=== PATIENT | female | born 1960 | race Caucasian/White ===

== ENCOUNTER 2023-09-10 21:30 | Inpatient (IN) | payer OTHER, SELFPAY ==
[2023-09-10] VITALS (8 sets, daily range): BP systolic 110–123; BP diastolic 63–77; PULSE 59–78; RESP 20; TEMP 36; O2SAT 90–94; BMI 37.1
--- NOTE | 2023-09-10 21:57 | ED.ABDPAIN ---
HPI - Abdominal Pain General Time Seen by Provider: 21:57 Date Seen: 09/10/23 Chief Complaint: Abdominal Pain Stated Complaint: abdominal pain Time Seen by Provider: 09/10/23 21:56 Source: patient and RN notes reviewed Mode of arrival: ambulatory Limitations: no limitations History of Present Illness HPI narrative: This 63-year-old female is coming in with epigastric/right upper quadrant abdominal pain starting around 8:00 p.m. tonight. She had a brief episode lasting about 20 minutes earlier this morning. She feels nauseated but has not thrown up. Since the pain has started, feels sweaty and hot. She denies any bowel changes or urinary changes, no known fevers. She states she knows she has gallstones, had an ultrasound maybe a couple months ago but was not symptomatic at that time other than maybe having some pain in her back per report. She did have steak, baked potato and green beans for dinner tonight. She is having significant pain. MD elicited complaint: abdominal pain Related Data Patient : No Home Medications Medication Instructions Recorded Confirmed No Known Home Medications 09/10/23 09/10/23 Allergies Allergy/AdvReac Type Severity Reaction Status Date / Time No Known Allergies Allergy Verified 09/10/23 23:29 Review of Systems Status of ROS Reports: 6 or more systems reviewed and unremarkable except as noted in History and below [facility] Surgical History History of hysterectomy ?Z90.710 - Acquired absence of both cervix and uterus (ICD-10) Social History Smoking Status: Never smoker Do you use any of these nicotine containing products: None Second hand tobacco smoke exposure: No How often do you have a drink containing alcohol: never AUDIT-C Alcohol total score: 0 Non-prescribed substance use: denies use Exam Const: Vital Signs, click to edit/add: Vital Signs - 24 hr 09/10/23 21:50 09/10/23 22:20 09/10/23 22:30 Temperature 96.8 F L Pulse Rate 71 59 L Pulse Rate [Pulse Oximeter] 70 Respiratory Rate 20 Blood Pressure Blood Pressure [Ri ght Upper Arm] 111/77 Pulse Oximetry 93 91 90 Oxygen Delivery Me thod Room Air Room Air 09/10/23 22:32 09/10/23 23:00 09/10/23 23:02 Temperature Pulse Rate 59 L 71 68 Pulse Rate [Pulse Oximeter] Respiratory Rate Blood Pressure 110/74 119/63 Blood Pressure [Ri ght Upper Arm] Pulse Oximetry 91 92 93 Oxygen Delivery Me thod 09/10/23 23:38 09/10/23 23:40 09/11/23 00:00 Temperature Pulse Rate 78 77 70 Pulse Rate [Pulse Oximeter] Respiratory Rate Blood Pressure 123/68 Blood Pressure [Ri ght Upper Arm] Pulse Oximetry 94 94 91 Oxygen Delivery Me thod This 63-year-old female is alert but pale, sweaty, looks like she does not feel well. Sclera clear, face is atraumatic. Able speak in complete sentences. Lungs clear, good air entry. CV regular rate and rhythm, no murmur. Abdomen is soft but obese, she has epigastric and right upper quadrant tenderness, she is quite tender in do feel that there is component of rebound and guarding on her exam. Do hear bowel sounds. She was ambulatory into the ED of her own accord. Documenting provider has reviewed patient's vital signs: yes Course Course ED Course: Will place an IV, have her on oximetry, start IV fluids, morphine for pain and Zofran for nausea control. Will get full complement of labs. This does include lipase to see if we may have pancreatitis. Will see if we can find ultrasound report in outpatient records. It was not done in our facility. May need to do CT imaging tonight, would like to see the ultrasound report which was done reportedly outpatient. Patient could be going towards cholecystitis, need to rule out pancreatitis, common bile duct stone. Reevaluation(s) Time of Reevaluation #1: 22:42 Reevaluation #1: Potassium resulted low at 2.9. Have ordered IV potassium. Do not think that this patient is going to tolerate orals right now, need to see her lipase results as well. Time of Reevaluation #2: 23:08 Reevaluation #2: Have reviewed with patient that she will be getting a CT of her abdomen due to elevated lipase/pancreatitis. She is feeling much better, will let us know if pain returns. Time of Reevaluation #3: 00:10 Reevaluation #3: Reviewed with patient the pancreatitis, plan as discussed with the surgeon. She did tell me that they were supposed to be leaving Thursday for a 12 day cruise. Given her current status, reviewed with her that she would never make a 12 day cruise without dealing with her current medical problems 1st. Consultations Consultation #1: Have reviewed with our general surgeon Dr. Wu. She agrees with admission to the hospital service, keep patient NPO and repeat labs in morning. Will page the telehealth hospitalist. Time: 00:04 Consultation #2: Have spoken with Dr. Alfaro, reviewed patient's case. He accepts the patient inpatient status for pancreatitis. Time: 00:15 Vital Signs Vital signs: Initial Vital Signs Temperature 96.8 F L 09/10/23 21:50 Temperature Source Temporal Artery Scan 09/10/23 21:50 Pulse Rate 70 09/10/23 21:50 Respiratory Rate 20 09/10/23 21:50 Blood Pressure 111/77 09/10/23 21:50 Blood Pressure Mean 88 09/10/23 21:50 Blood Pressure Position Sitting 09/10/23 21:50 Pulse Oximetry 93 09/10/23 21:50 Oxygen Delivery Method Room Air 09/10/23 21:50 Vital Signs Temperature 96.8 F L 09/10/23 21:50 Pulse Rate 70 09/10/23 21:50 Respiratory Rate 20 09/10/23 21:50 Blood Pressure 111/77 09/10/23 21:50 Pulse Oximetry 93 09/10/23 21:50 Oxygen Delivery Method Room Air 09/10/23 21:50 Temperature 96.8 F L 09/10/23 21:50 Pulse Rate 70 09/11/23 00:00 Respiratory Rate 20 09/10/23 21:50 Blood Pressure 123/68 09/10/23 23:40 Pulse Oximetry 91 09/11/23 00:00 Oxygen Delivery Method Room Air 09/10/23 22:20 Medications Administered Medications: Generic Name Dose Route Start Last Admin Trade Name Freq PRN Reason Stop Dose Admin Potassium Chloride 10 meq in 100 mls @ 100 mls/hr 09/10/23 22:45 09/10/23 23:29 Potassium Chloride IVPB 09/11/23 01:14 100 mls/hr Q90M KAYE Administration Discontinued Medications Generic Name Dose Route Start Last Admin Trade Name Freq PRN Reason Stop Dose Admin Sodium Chloride 1,000 mls @ 500 mls/hr 09/10/23 22:01 09/10/23 22:18 0.9 % Sodium Chloride 1000 Ml IV 09/11/23 00:00 500 mls/hr .Q2H KAYE Administration Morphine Sulfate 4 mg 09/10/23 22:00 09/10/23 22:18 Morphine 4 Mg/Ml Inj IVP 09/10/23 22:01 4 mg ONCE ONE Administration Ondansetron HCl 4 mg 09/10/23 22:00 09/10/23 22:18 Ondansetron 2 Mg/Ml Inj IVP 09/10/23 22:01 4 mg ONCE ONE Administration MDM - Abdominal Pain Medical Records Attestation: I reviewed the patient's medical records. Medical records narrative: Patient had an ultrasound done on 05/13/2023 at [facility], indication was elevated liver function tests. The findings were liver is of normal size in has diffusely increased echogenicity. There is a normal appearance of the hepatic IVC and proximal abdominal aorta. There is no evidence of ascites. The gallbladder is of normal size in there are multiple mobile echogenic gallstones present. The gallbladder wall measures 2.5 mm in thickness. The common bile duct is of normal size and measures 3.9 mm in diameter at the level of the isabel hepaticus. The pancreas is not well visualized. There is no evidence of his stone or hydronephrosis within the right kidney. The right kidney measures 9.6 cm in length. The impression was cholelithiasis and fatty liver. Lab Data Attestation: I reviewed the patient's lab results. Labs: Lab Results 09/10/23 Range/Units 22:10 WBC 11.23 H (4.50-11.00) K/uL RBC 4.60 (4.00-5.20) m/uL Hgb 13.6 (12.0-16.0) gm/dL Hct 40.5 (33.0-51.0) % MCV 88 (80-100) fL MCH 30 (26-34) pg MCHC 34 (32-36) gm/dL RDW Coeff of Anais 13.5 (11.5-15.5) % Plt Count 241 (140-440) K/uL Neut % (Auto) 66.0 (42.0-72.0) % Lymph % (Auto) 26.8 (20-44) % Liberty % (Auto) 5.3 (0.0-11.0) % Eos % (Auto) 1.2 (0.0-7.0) % Baso % (Auto) 0.1 (0.0-3.0) % Neut # (Auto) 7.40 H (1.7-7.0) K/uL Lymph # (Auto) 3.00 H (0.90-2.90) K/uL Liberty # (Auto) 0.60 (0.00-0.90) K/UL Eos # (Auto) 0.10 (0.00-0.50) K/uL Baso # (Auto) 0.00 (0.00-0.30) K/uL Abs Immat Gran (auto) 0.10 (0.00-0.30) K/uL Imm/Tot Granulo (auto) 0.6 % Sodium 137 (135-149) mmol/L Potassium 2.9 L* (3.6-5.1) mmol/L Chloride 99 (96-114) mmol/L Carbon Dioxide 28 (20-32) mmol/L Anion Gap 10 (7-15) mEq/L BUN 15 (7-30) mg/dL Creatinine 0.6 (0.5-1.5) mg/dL Estimated Creat Clear 53.21 Estimated GFR 100 ml/min Glucose 160 H (60-115) mg/dL Lactate 0.9 (0.5-1.9) mmol/L Calcium 9.4 (8.4-10.6) mg/dL Total Bilirubin 1.3 (0.1-1.5) mg/dL Direct Bilirubin 0.5 (0.0-0.5) mg/dL AST 116 H (12-35) U/L ALT 57 H (4-35) U/L Alkaline Phosphatase 117 (40-150) U/L C-Reactive Protein < 0.5 L (0.5-1.0) mg/dL Total Protein 7.3 (6.0-8.3) g/dL Albumin 4.2 (3.3-5.0) g/dL Lipase 1622 H (23-300) U/L Imaging Data CT scan - abdomen: Attestation: I have reviewed the pertinent imaging results. Radiologist's impression: Patient: ADIEL CAMPBELL Facility:?[facility] Patient ID:?[id number] Site Patient ID:?[id number]. Site :?[id number] Study:?CT Abdomen/Pelvis 112 CC ISOVUE 370-09/10/2023 11:28:57 PM Ordering Physician:MICHAEL Final Report: INDICATION: Abdominal pain, known gallstones, pancreatitis. TECHNIQUE: CT abdomen and pelvis acquired with 112 cc Isovue 370 IV contrast. COMPARISON: None available. FINDINGS: Lower chest: Mild bibasilar atelectasis and/or scarring. Calcified left hilar lymph node. Liver: Unremarkable. Normal in size and attenuation. No suspicious masses. Gallbladder and bile ducts: Cholelithiasis and possibly biliary sludge. No inflammation or biliary ductal dilation. Pancreas: Mild fatty atrophy of the pancreas. Very subtle inflammatory changes about the uncinate process of the pancreas (). Spleen: Unremarkable. Normal in size. No masses. Adrenal glands: Unremarkable. No nodules. Kidneys: Unremarkable. No suspicious masses, stones, or hydronephrosis. GI tract: Unremarkable. Normal in caliber. No sign of mass or inflammation. Normal appendix. Vasculature: Abdominal aorta is normal in caliber. Mesenteric arteries are patent. Lymph nodes: No lymphadenopathy. Peritoneum/Abdominal Wall: Unremarkable. No sign of mass or infiltration. No free air or significant free fluid. Pelvis: Status post hysterectomy. Bones: Unremarkable for age. IMPRESSION: 1. Very subtle inflammatory changes about the uncinate process of the pancreas. This could represent early acute pancreatitis or residual inflammation from a previous episode of acute pancreatitis. No peripancreatic fluid collection. 2. Cholelithiasis without evidence for acute cholecystitis. Please note that all CT scans at this facility use dose modulation, iterative reconstruction, and/or weight-based dosing when appropriate to reduce radiation dose to as low as reasonably achievable. Dictated by Jeremy Thompson MD @ 09/10/2023 11:54:06 PM (Electronic Signature) Discharge Plan Discharge Clinical Impression: Hypokalemia Cholelithiasis Qualifiers: Cholelithiasis location: gallbladder Cholecystitis presence: with cholecystitis Acute pancreatitis Qualifiers: Pancreatitis type: biliary Acute pancreatitis complication: no infection or necrosis Qualified Code(s): K85.10 - Biliary acute pancreatitis without necrosis or infection Patient Disposition: Admitted As Observation
[2023-09-10 22:12] LABS: Lactate* 0.9 mmol/L (0.5-1.9)
[2023-09-10 22:14] LABS: Basophils Percent Auto 0.1 % (0.0-3.0); Eosinophils Percent Auto 1.2 % (0.0-7.0); Hematocrit 40.5 % (33.0-51.0); Hemoglobin* 13.6 gm/dL (12.0-16.0); Immature Granulocytes Pct Auto 0.6 %; Lymphocytes Percent Auto 26.8 % (20-44); Mean Corpuscular HGB Conc 34 gm/dL (32-36); Mean Corpuscular Hemoglobin 30 pg (26-34); Mean Corpuscular Volume 88 fL (80-100); Monocytes Percent Auto 5.3 % (0.0-11.0); Platelet Count* 241 K/uL (140-440); RDW Coefficient of Variation % 13.5 % (11.5-15.5); White Blood Count* 11.23 K/uL (4.50-11.00)
[2023-09-10] MEDS: 0.9 % SODIUM CHLORIDE 1000 ml 1,000 ML 500 ML IV (22:18)
[2023-09-10] MEDS: MORPHINE 4 MG/ML INJ IVP (22:18)
[2023-09-10] MEDS: ONDANSETRON 2 MG/ML inj 4 MG IVP (22:18)
[2023-09-10 22:28] LABS: Albumin* 4.2 g/dL (3.3-5.0); Chloride* 99 mmol/L (96-114); Sodium* 137 mmol/L (135-149)
[2023-09-10 22:30] LABS: Creatinine* 0.6 mg/dL (0.5-1.5); Est. Creatinine Clearance* 53.21; Estimated Glomerular Filt Rate 100 ml/min
[2023-09-10 22:31] LABS: Alanine Aminotransferase* 57 U/L (4-35); Alkaline Phosphatase* 117 U/L (40-150); Aspartate Amino Transferase* 116 U/L (12-35); Bilirubin Direct* 0.5 mg/dL (0.0-0.5); Bilirubin Total* 1.3 mg/dL (0.1-1.5); Blood Urea Nitrogen* 15 mg/dL (7-30); Carbon Dioxide* 28 mmol/L (20-32); Glucose* 160 mg/dL (60-115); Potassium* 2.9 mmol/L (3.6-5.1); Total Protein* 7.3 g/dL (6.0-8.3)
[2023-09-10 22:32] LABS: Calcium* 9.4 mg/dL (8.4-10.6)
[2023-09-10 22:33] LABS: Anion Gap 10 mEq/L (7-15)
[2023-09-10 22:35] LABS: C Reactive Protein* < 0.5 mg/dL (0.5-1.0)
--- NOTE | 2023-09-10 22:40 | ED.NURSE ---
Last oral intake: dinner at 1800.
[2023-09-10 22:45] LABS: Lipase* 1622 U/L (23-300)
--- NOTE | 2023-09-10 23:07 | CT_ITS ---
Patient: ADIEL CAMPBELL Facility:?[facility] Patient ID:?[id number] Site Patient ID:?[id number]. Site :?[id number] Study:?CT-Abdomen/Pelvis 112 CC ISOVUE 370-09/10/2023 11:28:57 PM Ordering Physician:MICHAEL Final Report: INDICATION: Abdominal pain, known gallstones, pancreatitis. TECHNIQUE: CT abdomen and pelvis acquired with 112 cc Isovue 370 IV contrast. COMPARISON: None available. FINDINGS: Lower chest: Mild bibasilar atelectasis and/or scarring. Calcified left hilar lymph node. Liver: Unremarkable. Normal in size and attenuation. No suspicious masses. Gallbladder and bile ducts: Cholelithiasis and possibly biliary sludge. No inflammation or biliary ductal dilation. Pancreas: Mild fatty atrophy of the pancreas. Very subtle inflammatory changes about the uncinate process of the pancreas (). Spleen: Unremarkable. Normal in size. No masses. Adrenal glands: Unremarkable. No nodules. Kidneys: Unremarkable. No suspicious masses, stones, or hydronephrosis. GI tract: Unremarkable. Normal in caliber. No sign of mass or inflammation. Normal appendix. Vasculature: Abdominal aorta is normal in caliber. Mesenteric arteries are patent. Lymph nodes: No lymphadenopathy. Peritoneum/Abdominal Wall: Unremarkable. No sign of mass or infiltration. No free air or significant free fluid. Pelvis: Status post hysterectomy. Bones: Unremarkable for age. IMPRESSION: 1. Very subtle inflammatory changes about the uncinate process of the pancreas. This could represent early acute pancreatitis or residual inflammation from a previous episode of acute pancreatitis. No peripancreatic fluid collection. 2. Cholelithiasis without evidence for acute cholecystitis. Please note that all CT scans at this facility use dose modulation, iterative reconstruction, and/or weight-based dosing when appropriate to reduce radiation dose to as low as reasonably achievable. Dictated by Jeremy Thompson MD @ 09/10/2023 11:54:06 PM Signed by:?Jeremy Thompson MD @09/10/2023 11:54:06 PM (Electronic Signature)
[2023-09-10 23:10] LABS: Slide Review Reflex No
[2023-09-10] MEDS: POTASSIUM CHLORIDE 10 MEQ/100 ML PIGGYBACK 100 MEQ IVPB (23:29)
[2023-09-11] VITALS (10 sets, daily range): BP systolic 105–138; BP diastolic 60–85; PULSE 67–81; RESP 16; TEMP 36.4–36.8; O2SAT 91–98; BMI 39.4
[2023-09-11] MEDS: POTASSIUM CHLORIDE 10 MEQ/100 ML PIGGYBACK 100 MEQ IVPB ×5 (00:50→06:33)
[2023-09-11] MEDS: LACTATED RINGERS 1000 ML 1,000 ML 125 ML IV (00:50)
--- NOTE | 2023-09-11 02:48 | W.PM.TELEH&P ---
Telehealth- H&P: HPI History of Present Illness Date Seen: 09/11/23 Chief complaint: abdominal pain Narrative: Lizy Magallon is seen as an Interactive Telehealth visit. Lizy Magallon is a 63 year old female who has a past medical history notable for hypertension, depression and obesity as well as known cholelithiasis. Patient reports that she had a previous episode of abdominal pain at that time she she was seen in clinic and had imaging showing cholelithiasis. At that time the pain was mostly right upper quadrant and resolved without intervention. On the day prior to admission she awoke with some mild abdominal pain but this only lasted for about 30 minutes then resolved. She then developed significant right upper quadrant pain radiating to the epigastric region after dinner. She had nausea without any vomiting. She had some diaphoresis. She did not have any fevers. The pain was described as sharp and did not go away. After about an hour and a half she could not deal with the pain any longer so she went to the ER for further evaluation. She denies any dysuria. She did not have chest pain or dyspnea. In the ER she underwent a CT of the abdomen and pelvis which showed evidence of acute pancreatitis as well as cholelithiasis. Her bilirubin was normal, she did have mild elevation in AST and ALT. The ER discussed the case with general surgery and they recommended she remain n.p.o., be treated for pancreatitis with plan for cholecystectomy during this hospitalization Incidentally the patient was noted to have significant hypokalemia, she reports she is on a diuretic for hypertension. Review of Systems Status of ROS: Reports: 10 or more systems reviewed and unremarkable except as noted in History and below [facility] Medical History (Updated 09/11/23 @ 02:54 by Issac Alfaro MD) Depression ?F32.A - Depression, unspecified (ICD-10) Hypertension ?I10 - Essential (primary) hypertension (ICD-10) Surgical History History of hysterectomy ?Z90.710 - Acquired absence of both cervix and uterus (ICD-10) Social History What is your current living situation?: I presently have a place to live Problems where you live: no known problems Problems where you live details: n/A In the past 12 months, utilities in danger of being shut off: no In past 12 months, lack of transportation kept you from medical appts, meetings, work, or getting things needed for daily living: no In the past 12 mos, have been you worried that your food would run out before you had money to buy more?: never true In the past 12 mos, the food you bought just didn't last and you didn't have money to buy more?: never true Highest level of school completed/degree received: Bachelor's degree Smoking Status: Never smoker Do you use any of these nicotine containing products: None Second hand tobacco smoke exposure: No How often do you have a drink containing alcohol: never AUDIT-C Alcohol total score: 0 Non-prescribed substance use: denies use How often does anyone, including family, friends and others, physically hurt you: never How often does anyone, including family, friends and others, insult or talk down to you: never How often does anyone, including family, friends and others, threaten you with harm: never How often does anyone, including family, friends and others, scream or curse at you: never service: No Meds Home Medications and Allergies Home Medications Medication Instructions Recorded Confirmed Type No Known Home Medications 09/10/23 09/10/23 History Allergies Allergy/AdvReac Type Severity Reaction Status Date / Time latex Allergy Hives Unverified 09/11/23 02:16 No Known Allergies Allergy Verified 09/10/23 23:29 Exam Narrative Exam Narrative: Physical Exam GENERAL: ?vital signs reviewed, well developed and nourished, appears uncomfortable HEENT: pupils are equal round and reactive to light, extraocular movements are grossly within normal limits and oral mucosa is dry NECK: Supple without lymphadenopathy or thyromegaly according to nursing staff examination observation HEART: Regular rate and rhythm without any rubs, murmurs, or gallops. LUNGS: Clear to auscultation bilaterally with good air movement throughout ABDOMEN: Observation from nurse assisted exam, abdomen appears soft, tender to the RUQ and epigastric region without rebound or guarding, and nondistended with Positive bowel sounds noted. EXTREMITIES: Strength and sensation is observed to be grossly within normal limits in the upper and lower extremities.? No focal strength deficit is observed. SKIN:? Observed warm and dry with color normal Const Vital Signs, click to edit/add: Vital Signs - 24 hr 09/10/23 21:50 09/10/23 22:20 09/10/23 22:30 Temperature 96.8 F L Pulse Rate 71 59 L Pulse Rate [Pulse Oximeter] 70 Respiratory Rate 20 Blood Pressure Blood Pressure [Right Arm] Blood Pressure [Right Upper Arm] 111/77 Pulse Oximetry 93 91 90 Oxygen Delivery Method Room Air Room Air 09/10/23 22:32 09/10/23 23:00 09/10/23 23:02 Temperature Pulse Rate 59 L 71 68 Pulse Rate [Pulse Oximeter] Respiratory Rate Blood Pressure 110/74 119/63 Blood Pressure [Right Arm] Blood Pressure [Right Upper Arm] Pulse Oximetry 91 92 93 Oxygen Delivery Method 09/10/23 23:38 09/10/23 23:40 09/11/23 00:00 Temperature Pulse Rate 78 77 70 Pulse Rate [Pulse Oximeter] Respiratory Rate Blood Pressure 123/68 Blood Pressure [Right Arm] Blood Pressure [Right Upper Arm] Pulse Oximetry 94 94 91 Oxygen Delivery Method 09/11/23 00:02 09/11/23 00:02 09/11/23 00:02 Temperature Pulse Rate 71 71 71 Pulse Rate [Pulse Oximeter] Respiratory Rate Blood Pressure 113/73 113/73 113/73 Blood Pressure [Right Arm] Blood Pressure [Right Upper Arm] Pulse Oximetry 92 92 92 Oxygen Delivery Method Room Air 09/11/23 00:02 09/11/23 00:30 09/11/23 00:31 Temperature Pulse Rate 71 77 76 Pulse Rate [Pulse Oximeter] Respiratory Rate Blood Pressure 113/73 135/85 Blood Pressure [Right Arm] Blood Pressure [Right Upper Arm] Pulse Oximetry 92 94 94 Oxygen Delivery Method 09/11/23 01:28 Temperature 97.7 F Pulse Rate Pulse Rate [Pulse Oximeter] 74 Respiratory Rate 16 Blood Pressure Blood Pressure [Right Arm] 134/77 Blood Pressure [Right Upper Arm] Pulse Oximetry 96 Oxygen Delivery Method Room Air Hospitalist - H&P: Result Labs Labs: Short CBC 09/10/23 Range/Units 22:10 WBC 11.23 H (4.50-11.00) K/uL Hgb 13.6 (12.0-16.0) gm/dL Hct 40.5 (33.0-51.0) % Plt Count 241 (140-440) K/uL BMP 09/10/23 22:10 Sodium 137 Potassium 2.9 L* Chloride 99 Carbon Dioxide 28 BUN 15 Creatinine 0.6 Glucose 160 H Calcium 9.4 Liver Function 09/10/23 Range/Units 22:10 Total Bilirubin 1.3 (0.1-1.5) mg/dL Direct Bilirubin 0.5 (0.0-0.5) mg/dL AST 116 H (12-35) U/L ALT 57 H (4-35) U/L Alkaline Phosphatase 117 (40-150) U/L Albumin 4.2 (3.3-5.0) g/dL Assessment and Plan Assessment and plan (1) Hypokalemia: Status: Acute (2) Acute pancreatitis: Status: Acute (3) Cholelithiasis: Status: Acute (4) Hypertension: Status: Acute (5) Depression: Status: Acute Plan Acute pancreatitis secondary to gallstones The abdomen and pelvis personally reviewed: Stranding around the pancreas, cholelithiasis. Official read is pending, a.m. team will need to follow Elevated lipase greater than 1600 with pain consistent with acute pancreatitis LR at 150 mL/h Antiemetics and analgesics General surgery consult in a.m. due to cholelithiasis Patient denies any significant alcohol use Anticipate cholecystectomy during this hospitalization NPO Hypertension Hold diuretics due to significant hypokalemia Patient does not recall the name of her antihypertensive Pharmacy will need to follow-up Depression On duloxetine, will hold due to significant hypokalemia Hypokalemia Potassium 2.9 10 mill equivalents potassium chloride x 6. Recheck BMP and magnesium and replace as needed Telemetry overnight Full code Telehealth: Statement Statement Telehealth Visit: Today's History and Physical is provided via interactive telehealth by Issac Alfaro MD.? Patient is located at [facility].? Provider is located at [facility] Nursing staff assisted with the patient's exam. The visit being done today meets criteria for a telehealth visit and the patient or patient?s parent/guardian is aware the visit is a telehealth visit. Camera Start Time: 02:37 Camera End Time: 02:46
[2023-09-11] MEDS: LACTATED RINGERS 1000 ML 1,000 ML 225 ML IV (05:05)
--- NOTE | 2023-09-11 05:59 | PC.NURSE ---
Pt arrived to the floor at 0100. A&O. VSS. Abdomen tender on palpation. denies pain at rest. Declines any pain medication at this time. Up at nirmala in room. NPO.
[2023-09-11 06:59] LABS: Basophils Absolute Auto 0.01 K/uL (0.00-0.30); Basophils Percent Auto 0.1 % (0.0-3.0); Eosinophils Absolute Auto 0.09 K/uL (0.00-0.50); Eosinophils Percent Auto 1.2 % (0.0-7.0); Hematocrit 35.8 % (33.0-51.0); Hemoglobin* 11.7 gm/dL (12.0-16.0); Immature Granulocytes Abs Auto 0.01 K/uL (0.00-0.30); Immature Granulocytes Pct Auto 0.1 %; Lymphocytes Absolute Auto 2.14 K/uL (0.90-2.90); Lymphocytes Percent Auto 28.7 % (20-44); Mean Corpuscular HGB Conc 33 gm/dL (32-36); Mean Corpuscular Hemoglobin 30 pg (26-34); Mean Corpuscular Volume 91 fL (80-100); Monocytes Percent Auto 6.3 % (0.0-11.0); Neutrophils Absolute Auto 4.74 K/uL (1.7-7.0); Neutrophils Percent Auto 63.6 % (42.0-72.0); Platelet Count* 230 K/uL (140-440); Red Blood Count 3.92 m/uL (4.00-5.20); White Blood Count* 7.46 K/uL (4.50-11.00)
[2023-09-11 07:07] LABS: Slide Review Reflex No
[2023-09-11 07:09] LABS: Albumin* 3.3 g/dL (3.3-5.0); Chloride* 104 mmol/L (96-114); Sodium* 140 mmol/L (135-149)
[2023-09-11 07:10] LABS: Potassium* 4.1 mmol/L (3.6-5.1)
[2023-09-11 07:12] LABS: Alanine Aminotransferase* 62 U/L (4-35); Alkaline Phosphatase* 95 U/L (40-150); Anion Gap 5 mEq/L (7-15); Aspartate Amino Transferase* 93 U/L (12-35); Bilirubin Total* 0.9 mg/dL (0.1-1.5); Blood Urea Nitrogen* 12 mg/dL (7-30); Carbon Dioxide* 31 mmol/L (20-32); Creatinine* 0.6 mg/dL (0.5-1.5); Est. Creatinine Clearance* 53.21; Estimated Glomerular Filt Rate 100 ml/min; Glucose* 103 mg/dL (60-115); Magnesium* 1.9 mg/dL (1.5-2.6); Total Protein* 5.9 g/dL (6.0-8.3)
[2023-09-11 07:13] LABS: Calcium* 8.6 mg/dL (8.4-10.6)
[2023-09-11] MEDS: LACTATED RINGERS 1000 ML 1,000 ML 150 ML IV ×2 (10:28→17:07)
--- NOTE | 2023-09-11 13:21 | P.GSCN_ITS ---
History of Present Illness Consult details Date Seen: 09/11/23 Consult date: 09/11/23 Narrative: Patient presented to the ED last night with severe abdominal pain, nausea and vomiting. She reports pain in the middle of her abdomen and radiating to her back. She has had several episodes prior to this, but they usually lasted only 30-60 minutes. The pain started after a meal of steak and potatoes. This morning she is feeling much better. Did have some associated nausea and vomiting, none currently. Denies any changes to stools or urine. No fever or chills. Abdominal surgical history is positive for C section and abdominal hysterectomy. Review of Systems Status of ROS: Reports: 10 or more systems reviewed and unremarkable except as noted in History and below [facility] Medical History (Updated 09/11/23 @ 13:27 by Monie Wu MD) Depression ?F32.A - Depression, unspecified (ICD-10) Hypertension ?I10 - Essential (primary) hypertension (ICD-10) Surgical History History of hysterectomy ?Z90.710 - Acquired absence of both cervix and uterus (ICD-10) Social History What is your current living situation?: I presently have a place to live Problems where you live: no known problems Problems where you live details: n/A In the past 12 months, utilities in danger of being shut off: no In past 12 months, lack of transportation kept you from medical appts, meetings, work, or getting things needed for daily living: no In the past 12 mos, have been you worried that your food would run out before you had money to buy more?: never true In the past 12 mos, the food you bought just didn't last and you didn't have money to buy more?: never true Highest level of school completed/degree received: Bachelor's degree Smoking Status: Never smoker Do you use any of these nicotine containing products: None Second hand tobacco smoke exposure: No How often do you have a drink containing alcohol: never AUDIT-C Alcohol total score: 0 Non-prescribed substance use: denies use How often does anyone, including family, friends and others, physically hurt you : never How often does anyone, including family, friends and others, insult or talk down to you: never How often does anyone, including family, friends and others, threaten you with harm: never How often does anyone, including family, friends and others, scream or curse at you: never service: No Meds Home Medications and Allergies Home Medications Medication Instructions Recorded Confirmed Type No Known Home Medications 09/10/23 09/10/23 History Allergies Allergy/AdvReac Type Severity Reaction Status Date / Time latex Allergy Hives Unverified 09/11/23 02:16 No Known Allergies Allergy Verified 09/10/23 23:29 Exam Narrative: Exam Narrative: Gen: alert and oriented, NAD Resp: clear breath sounds, maintained on RA CV: well perfused, RRR Abdomen: soft, non tender, non distended. Negative Castillo's sign. Lower midline incision well healed. Const: Vital Signs, click to edit/add: Vital Signs - 24 hr 09/10/23 21:50 09/10/23 22:20 09/10/23 22:30 Temperature 96.8 F L Pulse Rate 71 59 L Pulse Rate [Pulse Oximeter] 70 Respiratory Rate 20 Blood Pressure Blood Pressure [Ri ght Arm] Blood Pressure [Ri ght Upper Arm] 111/77 Pulse Oximetry 93 91 90 Oxygen Delivery Me thod Room Air Room Air 09/10/23 22:32 09/10/23 23:00 09/10/23 23:02 Temperature Pulse Rate 59 L 71 68 Pulse Rate [Pulse Oximeter] Respiratory Rate Blood Pressure 110/74 119/63 Blood Pressure [Ri ght Arm] Blood Pressure [Ri ght Upper Arm] Pulse Oximetry 91 92 93 Oxygen Delivery Me thod 09/10/23 23:38 09/10/23 23:40 09/11/23 00:00 Temperature Pulse Rate 78 77 70 Pulse Rate [Pulse Oximeter] Respiratory Rate Blood Pressure 123/68 Blood Pressure [Ri ght Arm] Blood Pressure [Ri ght Upper Arm] Pulse Oximetry 94 94 91 Oxygen Delivery Me thod 09/11/23 00:02 09/11/23 00:02 09/11/23 00:02 Temperature Pulse Rate 71 71 71 Pulse Rate [Pulse Oximeter] Respiratory Rate Blood Pressure 113/73 113/73 113/73 Blood Pressure [Ri ght Arm] Blood Pressure [Ri ght Upper Arm] Pulse Oximetry 92 92 92 Oxygen Delivery Me thod Room Air 09/11/23 00:02 09/11/23 00:30 09/11/23 00:31 Temperature Pulse Rate 71 77 76 Pulse Rate [Pulse Oximeter] Respiratory Rate Blood Pressure 113/73 135/85 Blood Pressure [Ri ght Arm] Blood Pressure [Ri ght Upper Arm] Pulse Oximetry 92 94 94 Oxygen Delivery Me thod 09/11/23 01:28 09/11/23 07:00 09/11/23 07:00 Temperature 97.7 F 97.6 F Pulse Rate Pulse Rate [Pulse Oximeter] 74 68 68 Respiratory Rate 16 16 16 Blood Pressure Blood Pressure [Ri ght Arm] 134/77 105/60 Blood Pressure [Ri ght Upper Arm] Pulse Oximetry 96 98 Oxygen Delivery Me thod Room Air Room Air 09/11/23 07:00 Temperature Pulse Rate 67 Pulse Rate [Pulse Oximeter] Respiratory Rate Blood Pressure Blood Pressure [Ri ght Arm] Blood Pressure [Ri ght Upper Arm] Pulse Oximetry Oxygen Delivery Me thod Results Labs Labs: Abnormal lab results 09/10/23 09/11/23 Range/Units 22:10 06:00 WBC 11.23 H (4.50-11.00) K/uL RBC 3.92 L (4.00-5.20) m/uL Hgb 11.7 L (12.0-16.0) gm/dL Neut # (Auto) 7.40 H (1.7-7.0) K/uL Lymph # (Auto) 3.00 H (0.90-2.90) K/uL Potassium 2.9 L* (3.6-5.1) mmol/L Anion Gap 5 L (7-15) mEq/L Glucose 160 H (60-115) mg/dL AST 116 H 93 H (12-35) U/L ALT 57 H 62 H (4-35) U/L C-Reactive Protein < 0.5 L (0.5-1.0) mg/dL Total Protein 5.9 L (6.0-8.3) g/dL Lipase 1622 H (23-300) U/L Diabetes panel 09/10/23 09/11/23 Range/Units 22:10 06:00 Sodium 137 140 (135-149) mmol/L Potassium 2.9 L* 4.1 (3.6-5.1) mmol/L Chloride 99 104 (96-114) mmol/L Carbon Dioxide 28 31 (20-32) mmol/L BUN 15 12 (7-30) mg/dL Creatinine 0.6 0.6 (0.5-1.5) mg/dL Glucose 160 H 103 (60-115) mg/dL Calcium 9.4 8.6 (8.4-10.6) mg/dL AST 116 H 93 H (12-35) U/L ALT 57 H 62 H (4-35) U/L Alkaline Phosphatase 117 95 (40-150) U/L Total Protein 7.3 5.9 L (6.0-8.3) g/dL Albumin 4.2 3.3 (3.3-5.0) g/dL Calcium panel 09/10/23 09/11/23 Range/Units 22:10 06:00 Calcium 9.4 8.6 (8.4-10.6) mg/dL Albumin 4.2 3.3 (3.3-5.0) g/dL Pituitary panel 09/10/23 09/11/23 Range/Units 22:10 06:00 Sodium 137 140 (135-149) mmol/L Potassium 2.9 L* 4.1 (3.6-5.1) mmol/L Chloride 99 104 (96-114) mmol/L Carbon Dioxide 28 31 (20-32) mmol/L BUN 15 12 (7-30) mg/dL Creatinine 0.6 0.6 (0.5-1.5) mg/dL Glucose 160 H 103 (60-115) mg/dL Calcium 9.4 8.6 (8.4-10.6) mg/dL Adrenal panel 09/10/23 09/11/23 Range/Units 22:10 06:00 Sodium 137 140 (135-149) mmol/L Potassium 2.9 L* 4.1 (3.6-5.1) mmol/L Chloride 99 104 (96-114) mmol/L Carbon Dioxide 28 31 (20-32) mmol/L BUN 15 12 (7-30) mg/dL Creatinine 0.6 0.6 (0.5-1.5) mg/dL Glucose 160 H 103 (60-115) mg/dL Calcium 9.4 8.6 (8.4-10.6) mg/dL Total Bilirubin 1.3 0.9 (0.1-1.5) mg/dL AST 116 H 93 H (12-35) U/L ALT 57 H 62 H (4-35) U/L Alkaline Phosphatase 117 95 (40-150) U/L Total Protein 7.3 5.9 L (6.0-8.3) g/dL Albumin 4.2 3.3 (3.3-5.0) g/dL All other labs normal. Progress Note:A&P Assessment and plan (1) Gallstone pancreatitis: Status: Acute Assessment and Plan: Patient is an otherwise healthy 63 yo F with work up consistent with gallstone pancreatitis. On CT imaging does have some evidence of inflammation at the head of the pancreas and stones within the gallbladder. No evidence of acute cholecystitis. Pain has resolved this morning with LFTs showing only mild elevation in transaminases, stone has likely passed with low likelihood of choledocholithiasis. I had a detailed conversation with the patient regarding the diagnosis of gallstone pancreatitis. We discussed the treatment options including observation with diet modification and laparoscopic cholecystectomy. We discussed the risks of surgery (including but not limited to) the risks of bleeding, infection, injury to other structures in the abdomen including bile duct injury, bile leak and conversion to an open operation. We discussed the possibility that the patient's pain not improve with surgery. We discussed the possibility of permanent post-operative diarrhea that may require medical management. Additionally, the conceivably of complications requiring additional surgery or further hospitalization were also discussed including the risks of OK, respiratory failure, stroke and blood clots. The patient voiced an understanding of our conversation, had the opportunity to ask questions, agreed to accept the risks of surgery and asked that we proceed with surgery. Will plan for surgery tomorrow morning given the inflammation seen on CT imaging. Will also repeat LFTs in the morning, if bilirubin/alk phos remain within normal limits and lipase downtrending then no need for intraoperative cholangiogram. - NPO midnight - repeat LFTs and lipase in am - OR for laparoscopic cholecystectomy 09/12/23
--- NOTE | 2023-09-11 19:38 | PC.NURSE ---
Patient alert and oriented. tolerating a bland diet. denies pain and N. VSS. resting comfortably, ambulating hallway with family. Patient will be NPO at midnight for surgery tomorrow by Dr. Wu.
[2023-09-11] MEDS: diphenhydrAMINE 25 MG CAPSULE PO (22:09)
[2023-09-11] MEDS: LORazepam 0.5 MG TABLET PO (23:40)
[2023-09-11] MEDS: LACTATED RINGERS 1000 ML 1,000 ML 75 ML IV (23:41)
[2023-09-12] VITALS (20 sets, daily range): BP systolic 120–170; BP diastolic 71–95; PULSE 64–89; RESP 12–16; TEMP 35.8–37.2; O2SAT 90–98
[2023-09-12 07:26] LABS: Hematocrit 37.4 % (33.0-51.0); Hemoglobin* 12.1 gm/dL (12.0-16.0); Mean Corpuscular HGB Conc 32 gm/dL (32-36); Mean Corpuscular Hemoglobin 29 pg (26-34); Mean Corpuscular Volume 91 fL (80-100); Platelet Count* 223 K/uL (140-440); Red Blood Count 4.11 m/uL (4.00-5.20); White Blood Count* 6.25 K/uL (4.50-11.00)
[2023-09-12 07:29] LABS: Slide Review Reflex No
[2023-09-12 07:48] LABS: Albumin* 3.6 g/dL (3.3-5.0); Chloride* 104 mmol/L (96-114); Sodium* 139 mmol/L (135-149)
[2023-09-12 07:49] LABS: Potassium* 3.8 mmol/L (3.6-5.1)
[2023-09-12 07:51] LABS: Anion Gap 6 mEq/L (7-15); Aspartate Amino Transferase* 49 U/L (12-35); Bilirubin Direct* 0.1 mg/dL (0.0-0.5); Bilirubin Total* 1.5 mg/dL (0.1-1.5); Blood Urea Nitrogen* 11 mg/dL (7-30); Carbon Dioxide* 29 mmol/L (20-32); Creatinine* 0.6 mg/dL (0.5-1.5); Est. Creatinine Clearance* 53.21; Estimated Glomerular Filt Rate 100 ml/min; Glucose* 91 mg/dL (60-115); Total Protein* 6.3 g/dL (6.0-8.3)
[2023-09-12 07:52] LABS: Alanine Aminotransferase* 51 U/L (4-35); Alkaline Phosphatase* 92 U/L (40-150); Calcium* 8.8 mg/dL (8.4-10.6); Lipase* 98 U/L (23-300)
[2023-09-12] MEDS: BUPIVACAINE 0.5% 30 ML INJECTION (09:31)
[2023-09-12] MEDS: ONDANSETRON 2 MG/ML inj 4 MG IVP (10:25)
--- NOTE | 2023-09-12 10:52 | PM.GSPRC ---
Operative Note Date of procedure: 09/12/23 Pre-op diagnosis: Gallstone pancreatitis Post-op diagnosis: Same Type of Procedure: Laparoscopic cholecystectomy Indications: Patient is a 63-year-old female who presented to the emergency department with evidence of pancreatitis. On workup she was found to have multiple small stones within the gallbladder, consistent with a diagnosis of gallstone pancreatitis. Risks and benefits of operative intervention were discussed at length with the patient. Risks included but was not limited to: Bleeding, infection, risk of damage to surrounding structures, possible need for additional procedures, possible need to convert to an open operation and postoperative complications such as pneumonia, pulmonary emboli or ME. All questions and concerns were addressed with the patient agreeing to proceed. Procedure Description: After discussing the risks and benefits of the procedure, the patient signed informed consent.? The operative site was marked and the patient was brought to the operating room and placed on the operating table in supine position.? Care was taken to pad the patient's pressure points.?? The patient was then intubated by anesthesia.?? The operative site was then prepped and draped in the usual sterile fashion.? A time-out was then performed. Entrance to the abdomen was gained via a 5 mm Visiport in the left upper quadrant. The abdomen was insufflated and briefly surveyed for signs of injury. There was none. 11 mm umbilical port was placed as well as 2 working ports along the right costal margin. Patient was then placed in reverse Trendelenburg position with the right side up. The gallbladder fundus was grasped and retracted cephalad. The infundibulum was grasped. A combination of hook cautery and blunt dissection was used to carefully dissect out the cystic duct and artery until they could clearly be seen entering the gallbladder without any intervening structures. The gallbladder was dissected off the cystic plate to achieve the critical view. Once this was achieved the cystic duct and artery were each clipped with 2 clips proximally and 1 clip distally and transected with the scissors. The gallbladder was then taken off of the liver bed. During this portion of the procedure and artery on the liver bed was bleeding. Two 5 mm clips were applied with adequate hemostasis. A tear of the gallbladder body also occurred with spillage of a large amount of small black stones. The left upper quadrant port was then upgraded to an 11 mm port and an open tipped 10 mm suction used to irrigate and remove all spilled stones. Once the gallbladder was completely removed from the liver bed and hemostasis assured it was removed from the abdomen using an Endo-Catch bag. Both 11 mm ports were closed with an 0 Vicryl via the Rolly-Katty. All other ports were then removed under direct vision. The skin was closed with absorbable subcuticular suture. Instrument sponge and needle counts were correct at the end of the case. The patient was then woken and transferred to the PACU in stable condition. Findings: Cholelithiasis, distended gallbladder. Spillage of stones and bile during procedure. Anesthesia: GETA Surgeon: Monie Wu MD Estimated blood loss (mL): 2 Specimen: Gallbladder Condition: stable Disposition: PACU
--- NOTE | 2023-09-12 11:03 | W.ANESCHARGE ---
Anesthesia Charges Start Date/Time Anesthesia Start Date: 09/12/23 Anesthesia Start Time: 09:01 Stop Date/Time Anesthesia Stop Date: 09/12/23 Anesthesia Stop Time: 11:00
[2023-09-12] MEDS: HYDROmorphone 0.5 mg/0.5 ml inj IVP ×3 (11:04→11:24)
[2023-09-12] MEDS: diphenhydrAMINE 25 MG CAPSULE PO (12:46)
--- NOTE | 2023-09-12 14:36 | PM.IMPN1 ---
Progress Note: A&P Assessment and plan (1) Status post laparoscopic cholecystectomy: Problem details: 09/12/2023, Dr. Wu -mild hypoxia after surgery - weaned to room air day of surgery. hx of BOB, wears CPAP Status: Acute (2) Gallstone pancreatitis: Problem details: Status post lap choly. Lipase is normal. Routine postoperative cares. Status: Acute (3) Hypokalemia: Problem details: 2.9 on presentation. Now normal. Status: Acute (4) Hypertension: Problem details: -no meds Status: Acute (5) Depression: Problem details: -no meds Status: Acute Subjective Date Seen: 09/12/23 Interval history: Daily Progress Note - Hospital Medicine Day #: 2 POD #0 Laparoscopic cholecystectomy (Bryce 09/12/23) CC: gallstone pancreatitis; s/p lap katie OVERNIGHT UPDATES FROM STAFF & MED, LAB, IMAGING UPDATES -preop CBC this morning is quite reassuring. Her total white blood cell count 6.2. Hemoglobin 12.1. -electrolytes are all normal. Intact renal function. LFTs are down trending. Lipase is normal Objective: Vitals: see above Lungs: Clear. Cardiac: S1S2. Disposition/Potential discharge - Likely to return to previous living situation. Today I spent 50minutes seeing the patient, reviewing Expanse and EPIC notes/diagnostics, discussing the care plan with our care time that includes social work, PT/OT, pharmacy, RT, half-way and documenting my impressions and plan in the medical record. Exam Const: Vital Signs, click to edit/add: Vital Signs - 24 hr 09/11/23 20:15 09/11/23 23:00 09/11/23 23:00 Temperature 98.3 F 97.8 F Pulse Rate Pulse Rate [Pulse Oximeter] 81 73 Respiratory Rate 16 16 16 Blood Pressure Blood Pressure [Le ft Arm] Blood Pressure [Ri ght Arm] 123/63 138/83 Pulse Oximetry 93 94 Oxygen Delivery Me thod Room Air Room Air Oxygen Flow Rate 09/11/23 23:20 09/12/23 03:00 09/12/23 07:00 Temperature Pulse Rate 76 84 Pulse Rate [Pulse Oximeter] 74 Respiratory Rate 16 Blood Pressure Blood Pressure [Le ft Arm] Blood Pressure [Ri ght Arm] Pulse Oximetry Oxygen Delivery Me thod Oxygen Flow Rate 09/12/23 07:51 09/12/23 10:59 09/12/23 11:04 Temperature 96.4 F L 97.6 F Pulse Rate 89 80 Pulse Rate [Pulse Oximeter] 87 Respiratory Rate 16 16 12 Blood Pressure 144/95 H 151/82 H Blood Pressure [Le ft Arm] Blood Pressure [Ri ght Arm] 120/89 Pulse Oximetry 95 90 98 Oxygen Delivery Me thod Room Air Room Air Nasal Cannula Oxygen Flow Rate 6 09/12/23 11:10 09/12/23 11:15 09/12/23 11:20 Temperature Pulse Rate 73 74 66 Pulse Rate [Pulse Oximeter] Respiratory Rate 16 16 16 Blood Pressure 153/85 H 146/91 H 138/80 Blood Pressure [Le ft Arm] Blood Pressure [Ri ght Arm] Pulse Oximetry 98 97 97 Oxygen Delivery Me thod Nasal Cannula Nasal Cannula Nasal Cannula Oxygen Flow Rate 6 6 6 09/12/23 11:25 09/12/23 11:31 09/12/23 11:45 Temperature 97.4 F L 96.9 F L Pulse Rate 73 64 Pulse Rate [Pulse Oximeter] 70 Respiratory Rate 16 16 14 Blood Pressure 131/84 130/80 Blood Pressure [Le ft Arm] 144/93 H Blood Pressure [Ri ght Arm] Pulse Oximetry 98 94 92 Oxygen Delivery Me thod Nasal Cannula Nasal Cannula Nasal Cannula Oxygen Flow Rate 4 4 2 09/12/23 11:45 09/12/23 12:00 09/12/23 12:15 Temperature 96.9 F L 97.9 F 97.9 F Pulse Rate 70 Pulse Rate [Pulse Oximeter] 74 70 Respiratory Rate 14 14 16 Blood Pressure Blood Pressure [Le ft Arm] 144/93 H 165/71 H 142/72 H Blood Pressure [Ri ght Arm] Pulse Oximetry 92 92 95 Oxygen Delivery Me thod Nasal Cannula Nasal Cannula Nasal Cannula Oxygen Flow Rate 2 2 4 09/12/23 12:30 09/12/23 12:45 Temperature 97.8 F 98.0 F Pulse Rate Pulse Rate [Pulse Oximeter] 67 66 Respiratory Rate 16 16 Blood Pressure Blood Pressure [Le ft Arm] 153/81 H 156/83 H Blood Pressure [Ri ght Arm] Pulse Oximetry 94 90 Oxygen Delivery Me thod Nasal Cannula Nasal Cannula Oxygen Flow Rate 3 3 Labs Labs: Laboratory Results - last 24 hr 09/12/23 06:23 WBC 6.25 RBC 4.11 Hgb 12.1 Hct 37.4 MCV 91 MCH 29 MCHC 32 Plt Count 223 Sodium 139 Potassium 3.8 Chloride 104 Carbon Dioxide 29 Anion Gap 6 L BUN 11 Creatinine 0.6 Estimated Creat Clear 53.21 Estimated GFR 100 Glucose 91 Calcium 8.8 Total Bilirubin 1.5 Direct Bilirubin 0.1 AST 49 H ALT 51 H Alkaline Phosphatase 92 Total Protein 6.3 Albumin 3.6 Lipase 98
[2023-09-12] MEDS: OXYCODONE 5 MG TABLET PO (17:47)
--- NOTE | 2023-09-12 18:47 | PC.NURSE ---
Pt alert and oriented. Pt pleasant and cooperative.Pt had complaints of pain ranging from 0-5. Pt had surgery at 9am. Pt has four lap sites; steristrips intact. Pt advanced to regular diet and tolerated well. Pt's IV removed; catheter intact. Pt discharged home with and daughter.
--- NOTE | 2023-09-12 18:49 | PC.NURSE ---
Pt up walking in hallways x 2 post surgery; tolerated well.
--- NOTE | 2023-09-17 14:28 | PM.DS1 ---
DS: Providers Provider Date Seen: 09/12/23 Date of admission: 09/11/23 00:46 Primary care physician: Bette Dasilva MD Admitting Clinician: Issac Alfaro MD Attending Physician on discharge: Maira Brown MD [facility] Date of Discharge: 09/12/23 DS: Diagnosis Discharge Diagnosis (1) Gallstone pancreatitis: Status: Acute Problem details: Status post lap choly. Lipase is normal. Routine postoperative cares. (2) Status post laparoscopic cholecystectomy: Status: Acute Problem details: 09/12/2023, Dr. Wu -mild hypoxia after surgery - weaned to room air day of surgery. hx of BOB, wears CPAP (3) Depression: Status: Acute Problem details: -no meds (4) Hypertension: Status: Acute Problem details: -no meds (5) Hypokalemia: Status: Acute Problem details: 2.9 on presentation. Now normal. DS: Summary Hospital Course Hospital Course: FINAL DIAGNOSIS/FOLLOW UP ISSUES: 1. Hypokalemia. Patient had replacement of this electrolyte. Outpatient follow-up with a BMP is recommended. 2. Status post lap choly; patient has appropriate follow-up with general surgeon BRIEF HOSPITAL COURSE: Patient was admitted for 3 days. Synopsis of acute inpatient issues are outlined above. Chronic medical conditions with notable findings outlined above. Patient came in with acute pancreatitis. This etiology was presumed to be from gallstones. She underwent a successful and uncomplicated laparoscopic cholecystectomy on 09/12/2023. Her lipase preoperatively had peaked at 1622 and the morning prior to surgery it had returned to normal at 98. Her potassium upon presentation was 2.9 and discharge potassium was 3.8. DISCHARGE MEDICATIONS: See Reconciled list - SIGNIFICANT CHANGES: Hydrocodone for pain. Laxative for constipation. Specific instructions to the patient and follow-up are outlined below. REVIEW OF SYSTEMS No new chest pain or dyspnea Pain controlled No voiding difficulties Tolerating diet challenge PHYSICAL EXAM: CONSTITUTIONAL: VITAL SIGNS: see record. HEENT: Normocephalic, atraumatic. PERRL, EOMI, conjunctivae pink, no scleral icterus. Ears and nose externally normal. Pharynx normal. NECK: No JVD. No carotid bruit, no thyromegaly, no adenopathy. CHEST: Clear to auscultation bilaterally. HEART: S1 and S2 normal. Edema ABDOMEN: Soft, nontender. Normal bowel sounds. MUSCULOSKELETAL: No gross joint deformity or swelling. NEURO: Cranial nerves intact. Grossly intact. No asymmetric findings. SKIN: No rashes, petechiae, concerning changes PSYCHIATRIC: Mood euthymic. DISPOSITION: Home with family Time spent on discharge 37 minutes. Status at Discharge Functional status at discharge: independent ambulation Overall status at discharge: patient is progressing back to baseline Time Spent with Patient Time attestation: Total time spent providing and/or coordinating discharge services: Time spent: Greater than 30 minutes DS: Data Data Completed and Pending Completed studies during hospitalization: Procedures Introduction of Other Therapeutic Substance into Respiratory Tract, Via Natural or Artificial Opening (09/11/23) Resection of Gallbladder, Percutaneous Endoscopic Approach (09/11/23) Discharge Plan Discharge Disposition: Home, Self-Care Date of Admission: 09/11/23 00:46 Attending Provider on Discharge: Monie Wu Consulting Providers: Monie Wu; Maira Brown Primary Care Provider: Bette Dasilva Condition: Improved Anticipated Discharge Date/Time: 09/12/23 18:00 Discharge Medications: New hydrocodone-acetaminophen 5-325 mg tablet 1 tab PO Q6H PRN (Reason: pain) Qty: 10 0RF senna 8.6 mg capsule 8.6 mg PO DAILY PRN (Reason: constipation) Qty: 90 0RF Discharge Orders: Discharge Order (Routine); Ordered 09/12/23 Ordered By: Monie Wu Patient Education: Hydrocodone/Acetaminophen (By mouth), Senna (By mouth), General Anesthesia (DC), Laparoscopic Cholecystectomy (DC), Post-Operative Instructions: Laparoscopic Cholecystectomy Additional Instructions: You were prescribed a narcotic pain medication. In addition you may supplement with Tylenol and/or ibuprofen. Be sure to not exceed greater than 4 g of Tylenol in a 24 hour period. While on narcotic pain medicine please take stool softeners. A prescription of stool softeners has been sent to the pharmacy. Stop if having greater than 2 stools per day. Follow-up with Dr. Wu in 2-3 weeks. Please call if you are experiencing severe pain, nausea, vomiting, difficulty urinating, fever or not had a bowel movement in 4 days after surgery. CALL [phone] ON THURSDAY FOR APPOINTMENT. Activity Level: Activity as Tolerated and No strenuous activity Activity Detail: Activity as tolerated. Avoid strenuous activity. No lifting greater than 20 lb for 2 weeks. Discharge Diet: Low Fat/Low Cholesterol Diet Detail: Continue with the low-fat diet for 2 weeks following surgery. After 2 weeks you can start introducing more fatty foods. Follow Up Appointments: Bette Dasilva MD [Primary Care Provider] - Emely Barbosa MD [Staff Physician] - Forms: [employer] Info Instructions
== END 2023-09-12 18:45 | disposition home or self-care (01) | DRG 417 ==
LOC: ED 09-11 00:07 → MEDSURG 09-11 00:46
PROVIDERS: Physician Assistant; Surgery; Admitting Provider Internal Medicine; Emergency Provider Family Medicine; PCP Family Medicine; Visit Provider Internal Medicine
PROC: 0FT44ZZ Resection of Gallbladder, Percutaneous Endoscopic Approach (ICD-10-PCS; CPT 47562; principal; 2023-09-12 09:00)
DX: K80.10 Calculus of gallbladder with chronic cholecystitis without obstruction (principal); K85.10 Biliary acute pancreatitis without necrosis or infection; F32.A Depression, unspecified; I10 Essential (primary) hypertension; E87.6 Hypokalemia; G47.33 Obstructive sleep apnea (adult) (pediatric); Z99.89 Dependence on other enabling machines and devices; E66.9 Obesity, unspecified; Z68.38 Body mass index [BMI] 38.0-38.9, adult
CPT/HCPCS: 00790; 36415; 74177; 80053; 80076; 82248; 83605; 83690; 83735; 85025; 85027; 86140; 88304; 99284; 99285; A9270; J0330; J0665; J1170; J1885; J2270; J2405; J2704; J2710; J3010; J3480; J7030; J7120; Q9967

== ENCOUNTER 2023-09-30 21:13 | Emergency (ER) | payer OTHER, SELFPAY ==
[2023-09-30 21:35] VITALS: BP 135/83; PULSE 92; RESP 16; TEMP 36.8; O2SAT 99; BMI 38.7
[2023-09-30 22:18] LABS: Lactate* 0.8 mmol/L (0.5-1.9)
--- NOTE | 2023-09-30 22:32 | ED_ITS ---
HPI - General Adult General Date Seen: 09/30/23 Chief complaint: Abdominal Pain Stated complaint: stomach pain, vomiting Time Seen by Provider: 09/30/23 22:24 History of Present Illness HPI narrative: 63-year-old female with previous cholecystectomy about 3 weeks ago on 09/12; also with history of hypertension, depression. She presents to the ER tonight with symptoms began yesterday. She has been nauseous and vomiting since last night and having severe mid abdominal pain. The pain does not radiate. The pain has been coming and going. No clear trigger for the pain. She has not needed to take any medication for it. According to discharge summary from 09/12 she was admitted to the hospital with gallstone pancreatitis. She has been 3 days in the hospital. She underwent laparoscopic cholecystectomy on 09/12. Preoperative lipase was 1622. Postopera tively it was down to 98. WBC was 11.2 on 09/10, down to 6.25 on 09/12. Hemoglobin 12.1. Kidney function normal. Creatinine 0.6. AST 49, ALT 51. Lipase 98 on 09/12. CTl abdomen/pelvis 09/10/2023 FINDINGS: Lower chest: Mild bibasilar atelectasis and/or scarring. Calcified left hilar lymph node. Liver: Unremarkable. Normal in size and attenuation. No suspicious masses. Gallbladder and bile ducts: Cholelithiasis and possibly biliary sludge. No inflammation or biliary ductal dilation. Pancreas: Mild fatty atrophy of the pancreas. Very subtle inflammatory changes about the uncinate process of the pancreas (). Spleen: Unremarkable. Normal in size. No masses. Adrenal glands: Unremarkable. No nodules. Kidneys: Unremarkable. No suspicious masses, stones, or hydronephrosis. GI tract: Unremarkable. Normal in caliber. No sign of mass or inflammation. Normal appendix. Vasculature: Abdominal aorta is normal in caliber. Mesenteric arteries are patent. Lymph nodes: No lymphadenopathy. Peritoneum/Abdominal Wall: Unremarkable. No sign of mass or infiltration. No free air or significant free fluid. Pelvis: Status post hysterectomy. Bones: Unremarkable for age. IMPRESSION: 1. Very subtle inflammatory changes about the uncinate process of the pancreas. This could represent early acute pancreatitis or residual inflammation from a previous episode of acute pancreatitis. No peripancreatic fluid collection. 2. Cholelithiasis without evidence for acute cholecystitis.. She had been recovering well after cholecystectomy without much abdominal pain. She has had some mild sensitivity around her right upper quadrant port and her left upper quadrant port but no redness, drainage or dehiscence. She developed symptoms yesterday that included nausea, multiple episodes of watery diarrhea and a few episodes of emesis. Emesis was somewhat better tasting and acidic and slightly greenish. She thought she might have a flu woke feels trying to wait out her symptoms at home. Symptoms were worse today and now also associated with upper abdominal pain. Her pain was reminiscent to her of when she had pancreatitis couple of weeks ago. Since she was not getting better, she needed to come to the ER. She is not febrile. No known sick contacts. Related Data Home Medications Medication Instructions Recorded Confirmed duloxetine 30 mg capsule,delayed 30 mg PO BID 09/30/23 09/30/23 release lisinopril 5 mg tablet 2.5 mg PO QPM 09/30/23 09/30/23 venlafaxine 37.5 mg 37.5 mg PO DAILY 09/30/23 09/30/23 capsule,extended release 24 hr Previous Rx's Medication Instructions Recorded sennosides 8.6 mg capsule (senna) 8.6 mg PO DAILY PRN constipation 09/12/23 #90 caps Allergies Allergy/AdvReac Type Severity Reaction Status Date / Time latex Allergy Hives Unverified 09/11/23 02:16 No Known Allergies Allergy Verified 09/10/23 23:29 [facility] Medical History (Updated 10/01/23 @ 00:59 by Jeremy Stoddard MD) Gallstone pancreatitis ?K85.10 - Biliary acute pancreatitis without necrosis or infection (ICD-10) Depression ?F32.A - Depression, unspecified (ICD-10) Hypertension ?I10 - Essential (primary) hypertension (ICD-10) Surgical History (Updated 09/20/23 @ 00:01 by Gato Cox) Status post laparoscopic cholecystectomy ?Z90.49 - Acquired absence of other specified parts of digestive tract (ICD- 10) History of hysterectomy ?Z90.710 - Acquired absence of both cervix and uterus (ICD-10) Social History What is your current living situation?: I presently have a place to live Problems where you live: no known problems Problems where you live details: n/A In the past 12 months, utilities in danger of being shut off: no In past 12 months, lack of transportation kept you from medical appts, meetings, work, or getting things needed for daily living: no In the past 12 mos, have been you worried that your food would run out before you had money to buy more?: never true In the past 12 mos, the food you bought just didn't last and you didn't have money to buy more?: never true Highest level of school completed/degree received: Bachelor's degree Smoking Status: Never smoker Do you use any of these nicotine containing products: None Second hand tobacco smoke exposure: No How often do you have a drink containing alcohol: never AUDIT-C Alcohol total score: 0 Non-prescribed substance use: denies use How often does anyone, including family, friends and others, physically hurt you : never How often does anyone, including family, friends and others, insult or talk down to you: never How often does anyone, including family, friends and others, threaten you with harm: never How often does anyone, including family, friends and others, scream or curse at you: never service: No Exam Narrative: Exam Narrative: Constitutional: Appears well-developed and well-nourished. Alert. Conversant. Non toxic. HENT: Head: Atraumatic. Nose: Nose normal. Mouth/Throat: Oral mucosa is clear but dry. no trismus. Pharynx normal. Tonsils symmetric. No tonsillar enlargement, erythema, or exudate. Eyes: Conjunctivae normal. EOM normal. Pupils equal, round, and reactive to light. No scleral icterus. Neck: Normal range of motion. Neck supple. No tracheal deviation present. Cardiovascular: Normal rate, regular rhythm. No gallop. No friction rub. No murmur heard. Symmetric radial artery pulses Pulmonary/Chest: Effort normal. No stridor. No respiratory distress. No wheezes. No rales. No rhonchi . No tenderness. Abdominal: Soft. Bowel sounds normal. No distension. No mass. Epigastric> right upper quadrant> left upper quad tenderness. No rebound. No guarding. Laparoscopic incisions are all well apposed, clean, dry. No erythema. No CVA tenderness. Musculoskeletal: RUE: Normal range of motion. No tenderness. No deformity LUE: Normal range of motion. No tenderness. No deformity RLE: Normal range of motion. No edema. No tenderness. No deformity LLE: Normal range of motion. No edema. No tenderness. No deformity Neurological: Alert and oriented to person, place, and time. Normal strength. CN II-VII intact. No sensory deficit. GCS eye subscore is 4. GCS verbal subscore is 5. GCS motor subscore is 6. Normal coordination Skin: Skin is warm and dry. No rash noted. No pallor. Normal capillary refill. Psychiatric: Normal mood. Normal affect. Const: Vital Signs, click to edit/add: Vital Signs - 24 hr 09/30/23 21:35 Temperature 98.3 F Pulse Rate [Right Pulse Oximeter] 92 Respiratory Rate 16 Blood Pressure [Ri ght Upper Arm] 135/83 Pulse Oximetry 99 Oxygen Delivery Me thod Room Air Course Course ED Course: Recheck-feeling much better after meds and fluids. Reevaluation(s) Reevaluation #1: Recheck-tolerated p.o. challenge with water and feels well. She is comfortable going home. Vital Signs Vital signs: Initial Vital Signs Temperature 98.3 F 09/30/23 21:35 Temperature Source Temporal Artery Scan 09/30/23 21:35 Pulse Rate 92 09/30/23 21:35 Respiratory Rate 16 09/30/23 21:35 Blood Pressure 135/83 09/30/23 21:35 Blood Pressure Mean 100 09/30/23 21:35 Blood Pressure Position Sitting 09/30/23 21:35 Pulse Oximetry 99 09/30/23 21:35 Oxygen Delivery Method Room Air 09/30/23 21:35 Vital Signs Temperature 98.3 F 09/30/23 21:35 Pulse Rate 92 09/30/23 21:35 Respiratory Rate 16 09/30/23 21:35 Blood Pressure 135/83 09/30/23 21:35 Pulse Oximetry 99 09/30/23 21:35 Oxygen Delivery Method Room Air 09/30/23 21:35 Temperature 98.3 F 09/30/23 21:35 Pulse Rate 92 09/30/23 21:35 Respiratory Rate 16 09/30/23 21:35 Blood Pressure 135/83 09/30/23 21:35 Pulse Oximetry 99 09/30/23 21:35 Oxygen Delivery Method Room Air 09/30/23 21:35 Medications Administered Medications: Discontinued Medications Generic Name Dose Route Start Last Admin Trade Name Freq PRN Reason Stop Dose Admin Hydromorphone HCl 0.5 mg 09/30/23 22:44 09/30/23 22:53 Hydromorphone 0.5 Mg/0.5 Ml Inj IVP 0.5 mg Q1H PRN Administration Pain Sodium Chloride 1,000 mls @ 1,000 mls/hr 09/30/23 22:45 09/30/23 23:34 0.9 % Sodium Chloride 1000 Ml IV 09/30/23 23:44 Infused .Q1H KAYE Infusion Ondansetron HCl 4 mg 09/30/23 22:44 09/30/23 22:53 Ondansetron 2 Mg/Ml Inj IVP 09/30/23 22:45 4 mg ONCE ONE Administration Medical Decision Making MDM Narrative Medical decision making narrative: Presented to the Emergency Department with upper abdominal pain. The differential diagnosis of abdominal pain includes: Possible retained common bile duct stone, recurrent pancreatitis, bile duct leak, surgical site infection from a recent cholecystectomy, less likely would be early Appendicitis, Bowel Obstruction, Ulcer, Ischemia, Diverticulitis, Pancreatitis, Enteritis/Colitis, amongst many other etiologies. Laboratory testing does not reveal a cause for the patient's pain. Fortunately LFTs and lipase and white count are all normal. CT Imaging is noted to be normal. The exact etiology of the abdominal pain is not clear at this time. No life threatening cause or need for emergent surgery or hospital admission is detected today. The patient was advised that if symptoms do not completely resolve within another 12-24 hours re-evaluation with primary care or return to the ED is indicated. The patient also understands that if they worsen, they should return to the ER right away. I discussed the uncertainty about the diagnosis and answered the patient's questions. Abdominal pain return precautions discussed. Instymeds prescriptions for [place] and Zofran provided. Lab Data Labs: Lab Results 09/30/23 Range/Units 22:10 WBC 6.63 (4.50-11.00) K/uL RBC 4.68 (4.00-5.20) m/uL Hgb 13.8 (12.0-16.0) gm/dL Hct 42.1 (33.0-51.0) % MCV 90 (80-100) fL MCH 30 (26-34) pg MCHC 33 (32-36) gm/dL RDW Coeff of Anais 13.9 (11.5-15.5) % Plt Count 243 (140-440) K/uL Neut % (Auto) 80.0 H (42.0-72.0) % Lymph % (Auto) 10.7 L (20-44) % [place] % (Auto) 7.5 (0.0-11.0) % Eos % (Auto) 1.4 (0.0-7.0) % Baso % (Auto) 0.2 (0.0-3.0) % Neut # (Auto) 5.30 (1.7-7.0) K/uL Lymph # (Auto) 0.70 L (0.90-2.90) K/uL [place] # (Auto) 0.50 (0.00-0.90) K/UL Eos # (Auto) 0.09 (0.00-0.50) K/uL Baso # (Auto) 0.01 (0.00-0.30) K/uL Abs Immat Gran (auto) 0.01 (0.00-0.30) K/uL Imm/Tot Granulo (auto) 0.2 % Sodium 137 (135-149) mmol/L Potassium 3.6 (3.6-5.1) mmol/L Chloride 109 (96-114) mmol/L Carbon Dioxide 19 L (20-32) mmol/L Anion Gap 9 (7-15) mEq/L BUN 9 (7-30) mg/dL Creatinine 0.5 (0.5-1.5) mg/dL Estimated Creat Clear 53.21 Estimated GFR 105 ml/min Glucose 117 H (60-115) mg/dL Lactate 0.8 (0.5-1.9) mmol/L Calcium 9.0 (8.4-10.6) mg/dL Total Bilirubin 1.3 (0.1-1.5) mg/dL AST 54 H (12-35) U/L ALT 33 (4-35) U/L Alkaline Phosphatase 113 (40-150) U/L Total Protein 7.5 (6.0-8.3) g/dL Albumin 4.4 (3.3-5.0) g/dL Lipase 46 (23-300) U/L Imaging Data CT scan - abdomen: Attestation: I have reviewed the pertinent imaging results. Radiologist's impression: Impression: Interval cholecystectomy with no acute abnormality appreciated to account for patient`s reported symptoms. Discharge Plan Discharge Clinical Impression: Vomiting and diarrhea, Abdominal pain Patient Disposition: Home, Self-Care Condition: Stable Instructions: Acute Nausea and Vomiting (DC), Abdominal Pain (ED) Additional Instructions: As we discussed, return to the ER for recheck if you are not completely improved within 24 hours. Come back to the ER right away if you have worsening symptoms such as uncontrolled nausea and vomiting, worsening pain, fever, bloody vomit or stool, weakness, or if you have any other problems. Use caution with prescription pain killers. They can cause drowsiness. Do not drive for 6 hours after taking pain medicines. Prescriptions: No Action venlafaxine 37.5 mg capsule,extended release 24hr 37.5 mg PO DAILY lisinopril 5 mg tablet 2.5 mg PO QPM duloxetine 30 mg capsule,delayed release(DR/EC) 30 mg PO BID senna 8.6 mg capsule 8.6 mg PO DAILY PRN (Reason: constipation) Qty: 90 0RF Follow Up/Referrals: Bette Dasilva MD [Primary Care Provider] - Stand Alone Forms: [employer] Info Instructions
--- NOTE | 2023-09-30 22:37 | CT_ITS ---
Patient: ADIEL CAMPBELL Facility:?[facility] Patient ID:?[id number] Site Patient ID:?[id number]. Site :?[id number] Study:?CT-Abdomen/Pelvis W ISOVUE 370-09/30/2023 11:17:50 PM Ordering Physician:THOMAS Final Report: Indication: Abdominal pain, recent pancreatitis Technique: CT through the abdomen and pelvis following 118 mL Isovue 370 IV contrast Comparison: CT abdomen pelvis dated 09/10/2023 Findings: Lower chest: Bibasilar atelectasis and/or scarring. Mild cardiomegaly. Hepatobiliary: No significant parenchymal abnormality is appreciated. Interval cholecystectomy with small volume fluid along the surgical bed. Spleen: Unremarkable. Pancreas: No acute abnormality appreciated. Adrenal glands: No acute abnormality appreciated. Kidneys: No significant parenchymal abnormality appreciated. No visualized calculi. No hydronephrosis. Bowel: No obstruction. No focal perienteric or pericolonic stranding is appreciated. The appendix is visualized and appears unremarkable. Vascular: No acute abnormality appreciated. Lymph nodes: No gross lymphadenopathy. Peritoneum: No free air. No free fluid. : No acute abnormality appreciated. Soft tissues: No acute abnormality appreciated. Bones: No acute fracture. No lytic or blastic lesion. Impression: Interval cholecystectomy with no acute abnormality appreciated to account for patient`s reported symptoms. Please note that all CT scans at this facility use dose modulation, iterative reconstruction, and/or weight-based dosing when appropriate to reduce radiation dose to as low as reasonably achievable. Dictated by Darron Welch MD @ 09/30/2023 11:36:01 PM Signed by:?Darron Welch MD @09/30/2023 11:36:01 PM (Electronic Signature)
[2023-09-30] MEDS: 0.9 % SODIUM CHLORIDE 1000 ml 1,000 ML IV (22:40)
[2023-09-30 22:47] LABS: Basophils Absolute Auto 0.01 K/uL (0.00-0.30); Basophils Percent Auto 0.2 % (0.0-3.0); Eosinophils Absolute Auto 0.09 K/uL (0.00-0.50); Eosinophils Percent Auto 1.4 % (0.0-7.0); Hematocrit 42.1 % (33.0-51.0); Hemoglobin* 13.8 gm/dL (12.0-16.0); Immature Granulocytes Abs Auto 0.01 K/uL (0.00-0.30); Immature Granulocytes Pct Auto 0.2 %; Lymphocytes Percent Auto 10.7 % (20-44); Mean Corpuscular HGB Conc 33 gm/dL (32-36); Mean Corpuscular Hemoglobin 30 pg (26-34); Mean Corpuscular Volume 90 fL (80-100); Monocytes Percent Auto 7.5 % (0.0-11.0); Platelet Count* 243 K/uL (140-440); RDW Coefficient of Variation % 13.9 % (11.5-15.5); Red Blood Count 4.68 m/uL (4.00-5.20); White Blood Count* 6.63 K/uL (4.50-11.00)
[2023-09-30 22:48] LABS: Albumin* 4.4 g/dL (3.3-5.0)
[2023-09-30 22:49] LABS: Chloride* 109 mmol/L (96-114); Potassium* 3.6 mmol/L (3.6-5.1); Sodium* 137 mmol/L (135-149)
[2023-09-30 22:51] LABS: Alkaline Phosphatase* 113 U/L (40-150); Anion Gap 9 mEq/L (7-15); Aspartate Amino Transferase* 54 U/L (12-35); Bilirubin Total* 1.3 mg/dL (0.1-1.5); Blood Urea Nitrogen* 9 mg/dL (7-30); Carbon Dioxide* 19 mmol/L (20-32); Creatinine* 0.5 mg/dL (0.5-1.5); Est. Creatinine Clearance* 53.21; Estimated Glomerular Filt Rate 105 ml/min; Lipase* 46 U/L (23-300); Total Protein* 7.5 g/dL (6.0-8.3)
[2023-09-30 22:52] LABS: Alanine Aminotransferase* 33 U/L (4-35); Glucose* 117 mg/dL (60-115)
[2023-09-30 22:53] LABS: Slide Review Reflex No
[2023-09-30] MEDS: ONDANSETRON 2 MG/ML inj 4 MG IVP (22:53)
[2023-09-30] MEDS: HYDROmorphone 0.5 mg/0.5 ml inj IVP (22:53)
--- NOTE | 2023-10-01 09:10 | ED.NURSE ---
Patient called stating she was seen last night and was supposed to get nausea medication and only received pain medications. Having nausea now. Spoke with Dr Carlin who gave verbal order for 4mg PO Zofran q6h PRN #20 for nausea. Patient to return to ER if this doesn't help. This was communicated to patient.
== END 2023-10-01 01:10 | disposition home or self-care (01) ==
PROVIDERS: Emergency Provider Emergency Medicine; PCP Family Medicine
DX: R10.9 Unspecified abdominal pain (principal); R19.7 Diarrhea, unspecified; R11.10 Vomiting, unspecified
CPT/HCPCS: 36415; 74177; 80053; 83605; 83690; 85025; 94761; 96374; 96375; 99283; 99284; 99285; J1170; J2405; J7030; Q9967